=== PATIENT | female | born 1980 | race Caucasian/White ===

== ENCOUNTER 2016-09-04 16:19 | Emergency (ER) | payer MEDICAID, OTHER ==
[2016-09-04 16:28] VITALS: BP 126/82; PULSE 91; TEMP 98.6; O2SAT 98
[2016-09-04] MEDS ORDERED: METOCLOPRAMIDE 10 MG/2 ML VIAL IVP ONE (17:09)
[2016-09-04] MEDS ORDERED: KETOROLAC 30 MG/1 ML SDV IVP ONE (17:52)
[2016-09-04] MEDS ORDERED: AMOXICILLIN/CLAVULANATE POT 875/125 MG TAB PO ONE (18:12)
--- NOTE | 2016-09-04 18:41 | UCPHY ---
H & P Patient Type: Established Chief Complaint Nursing Narrative: can, sinus congestion, body aches Time Seen by Provider: 09/04/16 16:57 HPI/ROS: This patient complains of left frontal head pain that she describes as throbbing in nature severe intensity. She reports that she has some discomfort in the area over the past 4-5 days and did see her primary care physician about the symptoms to that she had a URI with headache. However she reports significant sinus congestion and thinks that she has sinusitis. However, she has never had this much pain from sinusitis. She reports that she was swimming laps in [employer] and each time she did a flip turn she had increasing pain until she reached the 10/10 throbbing pain. While walking out to the car in the parking lot supported by her she had a brief syncopal episode and he caught her in his arms. She recovered within seconds and comes in with associated nausea. She also felt that she had slight blurring vision earlier which has since resolved. She does have a history of migraine headaches but states this feels different than a migraine. She explains that the nature the pain location feel different than her typical migraines. ROS: No fevers or chills. She reports no significant fatigue. No other constitutional symptoms. HEENT: Nasal congestion as noted with dark yellow discharge from her nostril per patient. She has no sore throat. No ear pain. She does have slightly diminished hearing left ear compared to baseline per her report. Pulmonary: No coughing. No shortness of breath. Cardiovascular: No heart palpitations. No chest pain. GI: No belly pain. Nausea but no vomiting. : No complaints. Last menstrual. Normal timing neuro: No focal numbness tingling or weakness. 10 point ROS is otherwise negative. Source: Patient, Family (Patient's also provides history.) Exam Limitations: No limitations - Personal History LMP (Females 10-55): 15-21 Days Ago - Medical/Surgical History PMH: Migraines Depression ADD Hx Asthma: No Hx Chronic Respiratory Disease: No Hx Diabetes: No Hx Cardiac Disease: No Hx Renal Disease: No Hx Cirrhosis: No Hx Alcoholism: No Hx HIV/AIDS: No Hx Splenectomy or Spleen Trauma: No Other PMH: ADD, kidney stones - Family History Significant Family History: No pertinent family hx - Social History Smoking Status: Never smoked Drug Use: None - Physical Exam Exam: Physical exam: Vital signs are normal General: Patient is in no acute distress. HEENT: Is no external evidence of trauma on exam. Nose atraumatic. She does have a swollen nasal mucosa on the left dairy. She has sinus tenderness to percussion to the left frontal sinus and maxillary sinus but she also reports "at the same time and also kind of feels good" . No other cranial tenderness. Ears: Clear bilaterally with no hemotympanum. Oropharynx: No dental trauma or malocclusion. No intraoral lacerations. Eyes: Pupils are equal and reactive to light. Extraocular motions are intact. Optic fundi: Clear with no papilledema or hemorrhage. Neck: Supple with no meningismus and no lymphadenopathy. Lungs: Clear to auscultation bilaterally Cardiac: Regular rate and rhythm no murmur gallop or rub. Abdomen: Soft nontender no organomegaly Back: Nontender Extremities: Atraumatic Neuro: GCS of 15. Cranial nerves II through XII intact. The patient initially has impression that there is slight decreased sensation in her left leg. This resolved on a recheck later during her visit. Cerebellar exam is normal as judged by symmetric rapid hand movements bilaterally. No pronator drift. No sensory or motor deficits are appreciated. Initial differential diagnosis: Sinusitis, intracranial bleed, intracranial lesion, migraine headache Constitutional: Initial Vital Signs Temperature (C) 37 C 09/04/16 16:24 Heart Rate 91 09/04/16 16:24 Respiratory Rate 18 09/04/16 16:24 Blood Pressure 126/82 H 09/04/16 16:24 O2 Sat (%) 98 09/04/16 16:24 O2 Delivery Mode Room Air Allergies/Adverse Reactions: shellfish derived Allergy (Verified 09/21/12 06:22) throat swelling Home Medications: Medication Instructions Recorded Adderall 10 MG (*) 09/04/16 Amox Tr/K Clav (Augmentin) 500 mg PO TID #30 tab 09/04/16 [Augmentin 500/125 MG TAB (*)] Zoloft 50mg (*) 09/04/16 traMADol [Ultram 50 mg (*)] 50 - 100 mg PO Q4 PRN #18 tab 09/04/16 Medical Decision Making - Diagnostics Imaging: Imaging Impressions Head CT 09/04/16 17:07 Impression: 1. Normal brain. 2. Might the patient symptoms be related to active sinus disease. Final concordant results called and discussed with UBALDO ELAM, at 2016 17:50 General information for patients regarding this examination can be found at [email or web address]. If you have questions or comments about this report, please contact me at [phone] (hospital) or [phone] (cell). The radiologist also mentions significant sinus disease with air-fluid level in the right maxillary sinus, sphenoid sinus and mild frontal sinus involvement as well. ED Course/Re-evaluation: IV normal saline bolus, Reglan, Benadryl and Toradol with relief down to 09/05. I counseled the patient regarding sinusitis Discussion: Patient here with sinus headache and sinusitis on the CT scan without evidence of intracranial pathology. She improved with treatment. No clinical evidence of DEPOSIT REFUND CLERK infection. No fever or other concerning findings. She is treated with 1st dose of Augmentin here. - Data Points Medications Given: Discontinued Medications Amoxicillin/Clavulanate Potassium (Augmentin 875mg) 875 mg PO EDNOW ONE PRN Reason: Protocol Stop: 09/04/16 18:13 Last Admin: 09/04/16 18:15 Dose: 875 mg Diphenhydramine HCl (Benadryl Injection) 25 mg IVP EDNOW ONE Stop: 09/04/16 17:10 Last Admin: 09/04/16 17:18 Dose: 25 mg Ketorolac Tromethamine (Toradol) 30 mg IVP EDNOW ONE Stop: 09/04/16 17:53 Last Admin: 09/04/16 18:01 Dose: 30 mg Metoclopramide HCl (Reglan Injection) 5 mg IVP EDNOW ONE Stop: 09/04/16 17:10 Last Admin: 09/04/16 17:19 Dose: 5 mg Departure - Departure Disposition: Home, Routine, Self-Care Clinical Impression: Sinus headache Sinusitis, acute Qualifiers: Sinusitis location: maxillary Recurrence: non-recurrent Qualified Code(s): J01.00 - Acute maxillary sinusitis, unspecified Condition: Good Instructions: Sinusitis (ED), Warm Compress or Soak (ED) Additional Instructions: Diagnosis: Sinus headache 2. Acute sinusitis Plan: Warm packs Ibuprofen 600 mg per 6 hours or Aleve 2 tabs twice a day Tylenol in addition for pain Augmentin antibiotic Tramadol in addition if needed for severe pain. No driving, alcohol or come tramadol. Referrals: MITZY HUFFMAN,. [Primary Care Provider] - As per Instructions Prescriptions: Amox Tr/K Clav (Augmentin) [Augmentin 500/125 MG TAB (*)] 500 mg PO TID #30 tab traMADol [Ultram 50 mg (*)] 50 - 100 mg PO Q4 PRN #18 tab PRN Reason: sinus pain - PQRS PQRS Measurement: NA
[2016-09-04 19:02] VITALS: RESP 16
== END 2016-09-04 18:45 | disposition home or self-care (01) ==
LOC: CED 16:19
DX: J01.00 Acute maxillary sinusitis, unspecified (principal); G43.909 Migraine, unspecified, not intractable, without status migrainosus; F32.9 Major depressive disorder, single episode, unspecified
CPT/HCPCS: 70450; 96361; 96374; 96375; G0463; J1200; J1885; J2765; 99215-PO

== ENCOUNTER 2016-09-13 19:45 | Emergency (ER) | payer MEDICAID ==
--- NOTE | 2016-09-13 21:32 | UCPHY ---
H & P Time Seen by Provider: 09/13/16 21:06 Patient Type: Established HPI/ROS: This patient returns for ongoing sinus pain after I saw her here in the clinic 9 days ago diagnosed with sinus headache, sinusitis started on Augmentin Flonase. I also treated her pain with tramadol. She had a negative CT brain at that time but findings of sinusitis-frontal and maxillary on the CT scan. She called earlier in the shift discuss her ongoing symptoms and advised her to complete the course of her Augmentin and follow up with her primary care physician. She has an appointment to see a practitioner at [facility] tomorrow but decided to come in tonight due to the ongoing symptoms. She reports 5/10 discomfort to the left maxillary and frontal sinus region and she feels that the sinuses still have fluid and that when she lays down on her side feels like fluid shifts in her sinuses by her description. She reports that she feels that sometimes ring last 9 days she has had some migraines triggered by her sinusitis but at the moment does not have any migraine type of headache and reports that she has had partial relief from ibuprofen from tramadol and is now out of tramadol. ROS: Constitutional: No fevers recently. No other constitutional symptoms. HEENT: No significant purulent nasal discharge at this point. Neuro: No numbness tingling or focal weakness. Pulmonary: She reports cough with feeling of chest congestion over the past week. She has been using her albuterol twice a day without a spacer with minimal improvement. She denies any respiratory distress. No pleuritic pain. Cardiovascular: No complaints GI: No complaints. 10 point ROS is otherwise negative. Smoking Status: Former smoker Physical Exam: Physical exam: Vital signs are normal General: Patient is in no acute distress. HEENT: Is no external evidence of trauma on exam. Nose atraumatic, mild swelling of the nasal mucosa bilaterally without purulent discharge. She has mild tenderness to percussion of the left maxillary sinus but not the frontal sinus. Ears: Clear bilaterally with no hemotympanum. Oropharynx: No dental trauma or malocclusion. No intraoral lacerations. Eyes: Pupils 4 mm equal and reactive bilaterally. Extraocular motions are intact bilaterally Neck: Supple Lungs: Mild expiratory wheeze and rhonchi bilaterally. No rales. Cardiac: Regular rate and rhythm no murmur gallop or rub. Neuro: GCS of 15. Cranial nerves II through XII intact. Cerebellar exam is normal as judged by symmetric rapid hand movements bilaterally. No pronator drift. No sensory or motor deficits are appreciated. Initial differential diagnosis: Ongoing sinus pressure/headache, tension headache, mild asthma symptoms, viral bronchitis Constitutional: Initial Vital Signs Temperature (C) 37.1 C 09/13/16 19:50 Heart Rate 67 09/13/16 19:50 Respiratory Rate 18 09/13/16 19:50 Blood Pressure 123/76 H 09/13/16 19:50 O2 Sat (%) 99 09/13/16 19:50 O2 Delivery Mode Room Air Allergies/Adverse Reactions: shellfish derived Allergy (Severe, Verified 09/13/16 20:03) throat swelling Home Medications: Medication Instructions Recorded Adderall 30 mg Tablet 09/04/16 Zoloft 100mg (*) 09/04/16 Albuterol Hfa Anes Only [Proair 2 puffs IH Q4 PRN #1 mdi 09/13/16 Hfa Icu (*)] Tramadol HCl 09/13/16 Wellbutrin 100mg (*) 09/13/16 predniSONE 40 mg PO DAILY #10 tab 09/13/16 Medical Decision Making ED Course/Re-evaluation: I counseled patient regarding her sinus pressure. I do not think she has ongoing bacterial infection given lack of fever. I think that she has some persistent sinus fluid causing her ongoing symptoms and suggested that she may benefit from prednisone to help both her sinus symptoms and her mild asthma symptoms. I offered her a DuoNeb here but she declined this treatment. I did advise her to use a spacer with her albuterol and increase the frequency to every 4 hours- 2 puffs as needed. Regarding her sinus discomfort reported 10/05 I advised her to use ibuprofen and Tylenol rather than continue with any opiate narcotics at this point. She explains that she did realize that tramadol was not opiate. I explained that is a synthetic opiate. 1 explaining I think it is best not to proceed with further opiates for sinus discomfort she became defensive apparently feeling that I was accusing her of drug-seeking. I reported that I simply remember that she had been on opiate narcotics in the past and reports that she stopped using them of her own accord in regardless of her background with any opiate so advise the same thing for any person at this point Patient appears clinically well I do not think she has a LOCOMOTIVE CRANE OPERATOR HELPER infection or other concerning clinical findings at this point. She plans to follow up with family medicine tomorrow explain that 1 consideration would be to place her on a macrolide antibiotic for her respiratory symptoms and ongoing sinus symptoms but think it is best that she 1st complete the last day of her Augmentin and try the prednisone to diminish swelling to the sinus and bronchi. I counseled her regarding potential side effects of prednisone Departure - Departure Disposition: Home, Routine, Self-Care Clinical Impression: Sinus pain Asthma Qualifiers: Asthma severity: mild intermittent Asthma complication type: uncomplicated Qualified Code(s): J45.20 - Mild intermittent asthma, uncomplicated Condition: Good Instructions: Asthma (ED), Sinusitis (ED) Additional Instructions: Diagnosis: 1. Sinus pain 2. Asthma Plan: Humidifier Continue current medications Add prednisone-40 mg the morning after breakfast for the next 5 days Ibuprofen and Tylenol Use a spacer with her albuterol inhaler-2 puffs every 4 hours as needed for cough, wheeze or shortness of breath Follow up with her primary care physician Good the emergency department for any significant worsening despite the treatment plan. Referrals: NONE *PRIMARY CARE P,. [Primary Care Provider] - As per Instructions Prescriptions: Albuterol Hfa Anes Only [Proair Hfa Icu (*)] 2 puffs IH Q4 PRN #1 mdi PRN Reason: Wheezing predniSONE 40 mg PO DAILY #10 tab - PQRS PQRS Measurement: NA
[2016-09-13 21:49] VITALS: BP 119/71; PULSE 71; RESP 16; TEMP 98.6; O2SAT 96
== END 2016-09-13 21:40 | disposition home or self-care (01) ==
LOC: CED 19:45
DX: J34.89 Other specified disorders of nose and nasal sinuses (principal); J45.20 Mild intermittent asthma, uncomplicated; Z87.891 Personal history of nicotine dependence
CPT/HCPCS: G0463-PO

== ENCOUNTER 2017-04-07 11:38 | Emergency (ER) | payer MEDICAID ==
[2017-04-07 11:45] VITALS: RESP 18
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
[2017-04-07 12:17] LABS: % IMMATURE GRANULYOCYTES 0.2 % (0.0-1.1); ABSOLUTE IMMATURE GRANULOCYTES 0.01 10^3/uL (0.00-0.10); ADD DIFF? NO; ADD MORPH? NO; ADD SCAN? NO; ATYPICAL LYMPHOCYTE FLAG 30 (0-99); FRAGMENT RBC FLAG 0 (0-99); HEMATOCRIT 40.9 % (38.0-47.0); HEMOGLOBIN 13.9 g/dL (12.6-16.3); LEFT SHIFT FLG 0 (0-99); LIPEMIA HEMOLYSIS FLAG 90 (0-99); MEAN CELL HEMOGLOBIN 29.9 pg (27.9-34.1); PLATELET CLUMPS FLAG 10 (0-99); PLATELET COUNT 406 10^3/uL (150-400); RED BLOOD CELL COUNT 4.65 10^6/uL (4.18-5.33)
[2017-04-07 12:25] LABS: INR 0.98 (0.83-1.16); PROTIME(PATIENT) 12.9 SEC (12.0-15.0)
--- NOTE | 2017-04-07 12:30 | CPEKG ---
Heart Rate: 69 RR Interval: 870 P-R Interval: 144 QRSD Interval: 94 QT Interval: 428 QTC Interval: 459 P [place]: 51 QRS [place]: 57 T Wave [place]: 22 EKG Severity - NORMAL ECG - EKG Impression: SINUS RHYTHM Electronically Signed By: Miko Goldberg 08-Apr-2017 21:55:13
[2017-04-07 12:39] LABS: ANION GAP 13 mEq/L (8-16); CALCIUM 9.6 mg/dL (8.5-10.4); CARBON DIOXIDE 26 mEq/l (22-31); CHLORIDE 104 mEq/L (97-110); CREATININE 0.9 mg/dL (0.6-1.0); GLOMERULAR FILTRATION RATE > 60; GLUCOSE 87 mg/dL (70-100); POTASSIUM 4.2 mEq/L (3.5-5.2); SODIUM 143 mEq/L (134-144)
[2017-04-07] MEDS ORDERED: IOPAMIDOL (ISOVUE 370) 100 ML BTL IV ONE (12:39)
[2017-04-07 15:28] VITALS: BP 101/66; PULSE 61; TEMP 98.2; O2SAT 98
== END 2017-04-07 15:28 | disposition home or self-care (01) ==
DX: G43.809 Other migraine, not intractable, without status migrainosus (principal)
CPT/HCPCS: 82947-QW; Q9967

== ENCOUNTER 2017-10-24 22:56 | Emergency (ER) | payer MEDICAID ==
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
[2017-10-25 00:05] LABS: PLATELET COUNT 421 10^3/uL (150-400)
--- NOTE | 2017-10-25 00:17 | CPEKG ---
Heart Rate: 66 RR Interval: 909 P-R Interval: 184 QRSD Interval: 100 QT Interval: 444 QTC Interval: 466 P [place]: 59 QRS [place]: 51 T Wave [place]: 6 EKG Severity - NORMAL ECG - EKG Impression: SINUS RHYTHM Electronically Signed By: Monserrat Gil 26-Oct-2017 05:10:01
[2017-10-25 02:32] VITALS: BP 120/77
== END 2017-10-25 02:34 | disposition home or self-care (01) ==
LOC: EDUNIT#
DX: R41.82 Altered mental status, unspecified (principal); F17.200 Nicotine dependence, unspecified, uncomplicated
CPT/HCPCS: 80305; G0480